=== PATIENT | female | born 1995 | race African-American/Black ===

== ENCOUNTER 2016-07-11 13:39 | Emergency (ER) | payer OTHER ==
[~2016-07-11] VITALS: Ht 170.2 cm; Wt 69.0 kg
[~2016-07-11 13:39] MED LIST: ALBU8HFA IH
[2016-07-11 14:23] LABS: ADD UA MICROSCOPIC YES; APPEARANCE,URINE CLEAR (CLEAR); GLUCOSE, URINE (UA) NEGATIVE (NEGATIVE); KETONES,URINE NEGATIVE (NEGATIVE); LEUKOCYTE ESTERASE ,URINE TRACE (NEGATIVE); OCCULT BLOOD,URINE NEGATIVE (NEGATIVE); PROTEIN,URINE TRACE (NEGATIVE)
[2016-07-11 14:25] LABS: RBC,URINE 0-2 /HPF (0-2); SQUAMOUS EPITHELIAL CELL,UR Few /LPF (None Seen)
[2016-07-11 14:35] LABS: BASOPHILS % (AUTO) 0.3 % (0.0-2.0); EOSINOPHILS % (AUTO) 0 % (1.0-6.0); HEMATOCRIT 44.4 % (36-46); HEMOGLOBIN 14.4 g/dL (12.0-16.0); LYMPHOCYTES % (AUTO) 6.5 % (22.0-44.0); MEAN CORPUSCULAR HEMOGLOBIN 25.9 pg (26.0-34.0); MEAN CORPUSCULAR HGB CONC 32.5 G/dL (31.0-37.0); MEAN CORPUSCULAR VOLUME 80 fL (80-100); MONOCYTES # (AUTO) 0.5 K/uL (0.1-1.0); MONOCYTES % (AUTO) 3.5 % (2.0-9.0); NEUTROPHILS % (AUTO) 89.7 % (40.0-70.0); PLATELET COUNT (AUTO) 234 K/uL (150-450); RED BLOOD CELL COUNT(AUTO) 5.58 MIL/uL (4.00-5.20); WHITE BLOOD COUNT (AUTO) 15.7 K/uL (4.5-11.0)
[2016-07-11 14:46] LABS: ANION GAP 6 mmol/L (8-16); CALCIUM, TOTAL 9.1 mg/dL (8.8-10.5); CARBON DIOXIDE 29 mmol/L (22-29); CHLORIDE 106 mmol/L (98-107); CREATININE 0.78 mg/dL (0.60-1.30); GLOMERULAR FILTR. RATE CALC > 60 mL/min (>60); POTASSIUM 4.1 mmol/L (3.5-5.1); SODIUM SERUM 141 mmol/L (136-145); UREA NITROGEN, BLOOD 11 mg/dL (7-18)
[2016-07-11 14:54] LABS: ALANINE AMINOTRANSFERASE 29 U/L (12-78); ALBUMIN 3.7 g/dL (3.4-5.0); ASPARTATE AMINOTRANSFERASE 17 U/L (15-37); BILIRUBIN,TOTAL 0.3 mg/dL (0.1-1.0); TOTAL PROTEIN, SERUM 8.2 g/dL (6.4-8.2)
[2016-07-11] MEDS ORDERED: BISMUTH SUBSALICYLATE 524 MG/30 ML SUSPENSION UDCUP PO ONE (19:00)
[2016-07-11] MEDS ORDERED: ONDANSETRON HCL 4 MG TABLET PO ONE (19:00)
[2016-07-11 20:08] VITALS: BP 124/74
== END 2016-07-11 20:09 | disposition home or self-care (01) ==
LOC: EMS 13:42
DX: R10.12 Left upper quadrant pain (principal); R11.2 Nausea with vomiting, unspecified; J45.909 Unspecified asthma, uncomplicated
CPT/HCPCS: 36415; 80053; 81001; 83690; 84703; 85025; 99284; Q0162

== ENCOUNTER 2018-11-10 07:08 | Emergency (ER) | payer OTHER ==
[~2018-11-10] VITALS: Ht 170.2 cm; Wt 86.4 kg
[2018-11-10] MEDS ORDERED: DEXAMETHASONE SOD PHOS 4 MG/ML 5 ML VIAL IM ONE (07:45)
[2018-11-10] MEDS ORDERED: PENICILLIN G BENZATHINE LA 1,200,000 UNITS/2 ML SYRINGE IM ONE (07:45)
[2018-11-10] MEDS ORDERED: ACETAMINOPHEN 500 MG TABLET PO ONE (08:00)
[2018-11-10 09:12] VITALS: BP 100/70
== END 2018-11-10 09:15 | disposition home or self-care (01) ==
LOC: EMS 07:08
DX: J03.90 Acute tonsillitis, unspecified (principal); J45.909 Unspecified asthma, uncomplicated
CPT/HCPCS: 96372; 99283; J0561; J1100